=== PATIENT | female | born 1980 | race Caucasian/White ===

== ENCOUNTER 2017-10-09 08:47 | Day surgery (SDC) | payer OTHER, SELFPAY ==
[2017-10-08 15:45] VITALS: BMI 17.6
[2017-10-09] MEDS ORDERED: Midazolam HCl 2 mg/2 ml Vial ONE ×2 (10:14→11:49)
[2017-10-09 10:27] LABS: #Lymphocytes 1.4 thou/uL (1.20-3.40); #Monocytes 0.5 thou/uL (0.11-0.59); #Neutrophils 4.9 thou/uL (1.40-6.50); %Basophils 0.6 % (0.0-1.0); %Eosinophils 0.6 % (0.0-10.0); %Lymphocytes 20.8 % (21.0-51.0); %Monocytes 7.1 % (0.0-10.0); Hemoglobin 14.3 g/dL (12.0-16.0); Mean Corpuscular HGB CONC 34.6 g/dL (32.0-36.0); Mean Corpuscular Volume 92.5 fl (81.0-99.0); Mean Platelet Volume 7.5 fL (7.4-10.4); Platelet Count 241 thou/uL (130-400); RBC Distribution Width 12.1 % (11.5-14.5); Red Blood Cell (RBC) Count 4.45 mill/uL (4.20-5.40); White Blood Cell (WBC) Count 6.9 thou/uL (4.8-10.8)
[2017-10-09] MEDS ORDERED: Doxycycline 100 MG CAP PO SCH ×2 (10:30→12:00)
[2017-10-09] MEDS ORDERED: Fentanyl 100 MCG/2 ML VIAL ONE (11:49)
[2017-10-09] MEDS ORDERED: Misoprostol 200 MCG TAB ONE ×2 (12:53→12:57)
[2017-10-09] MEDS ORDERED: Methylergonovine 0.2 MG/ML VIAL ONE (12:53)
[2017-10-09] MEDS ORDERED: Ketorolac Tromethamine 30 MG/ML VIAL ONE (13:21)
[2017-10-09] MEDS ORDERED: Propofol 200 MG/20 ML VIAL ONE (16:40)
--- NOTE | 2017-10-10 00:39 | OP ---
PREOPERATIVE DIAGNOSIS: 11 week and 4-day missed . POSTOPERATIVE DIAGNOSIS: 11 week and 4-day missed . PROCEDURE: Suction dilation and curettage. SURGEON: Ce Haile D.O. COMPLICATIONS: None. ESTIMATED BLOOD LOSS: 500 mL. IV FLUIDS: 800 mL. URINE OUTPUT: 300 mL during straight catheterization prior to procedure. FINDINGS: Normal appearing vaginal and cervical epithelium, uterus sounded 12 cm prior to procedure and involution noted after procedure. Products of conception. INDICATIONS FOR THE PROCEDURE: Ms. Kevin Anderson is a 37-year-old with a G3, 1, who presented to clinic on 10/08/2017 with 11 week 4-day missed . Patient was counseled on treatment options and elected to have surgical management with suction dilation and curettage. PROCEDURE IN DETAIL: The patient was given antibiotic prophylaxis using oral doxycycline prior to the procedure. She was then brought to the operating room and placed under anesthesia. The patient was placed in dorsal lithotomy position using candy cane stirrups. Straight cath was performed. She was prepped and draped in a sterile fashion. An official timeout was performed. A weighted speculum was placed in the posterior aspect of the vagina. The anterior aspect of vagina was retracted using a Watkins retractor and the anterior aspect of the cervix was grasped using a single tooth tenaculum. The cervix was sequentially dilated using Gorge dilators. A 8 mm suction curettage was then inserted into the cervical canal and suction was activated removing products of conception. Several rounds with the suction dilation and curettage were required to be performed to remove all products of conception. A sharp curettage was performed in a circumferential fashion noting still smooth texture. Therefore, the suction curettage was performed again after which a sharp curettage confirmed gritty texture. During the process of the dilation and curettage, due to increased bleeding, the patient was given Methergine 0.2 mg and rectal Cytotec 800 mcg were given. After the completion of dilation and curettage, bleeding was minimal and there was involution of the uterine cavity. The patient tolerated the procedure well. There were no complications. All counts were correct x2. The patient was transferred to the postoperative recovery room in hemodynamically stable condition. GURDEEP
== END 2017-10-09 15:30 | disposition home or self-care (01) ==
LOC: SDC 08:47
PROVIDERS: ATTEND Obstetrics & Gynecology
PROC: 10D17Z9 Manual Extraction of Products of Conception, Retained, Via Natural or Artificial Opening (ICD-10-PCS; principal; 2017-10-09)
DX: O02.1 Missed abortion (principal); Z79.899 Other long term (current) drug therapy; Z88.6 Allergy status to analgesic agent; Z88.1 Allergy status to other antibiotic agents; Z98.890 Other specified postprocedural states
CPT/HCPCS: 85025; 86850; 86900; 86901; 88305; 93005; 93010; 96374; J1885; J2210; J2250; J2704; J3010

== ENCOUNTER 2020-09-04 14:32 | Outpatient (CLI) | payer OTHER ==
--- NOTE | 2020-09-04 15:10 | MMO ---
Bilateral MAMMO Bilat Diag [facility]DI+NING. CLINICAL HISTORY: Patient is 40 years old and is seen for diagnostic exam. The patient has the following family history of breast cancer: maternal grandmother, Late 50's. The patient has no personal history of cancer. The patient has a history of left needle biopsy in 2016 - benign. VIEWS: The views performed were: bilateral craniocaudal with tomosynthesis; bilateral mediolateral oblique with tomosynthesis; and bilateral mediolateral with tomosynthesis. FILMS COMPARED: The present examination has been compared to prior imaging studies performed at [facility] on 11/30/2009 and 09/04/2020, and at [facility] on 11/27/2015 and 12/06/2015. This study has been interpreted with the assistance of computer-aided detection. MAMMOGRAM FINDINGS: The breasts are extremely dense, which may lower the sensitivity of mammography. Finding 1: There are stable benign appearing calcifications seen in both breasts. A biopsy clip is seen in the right breast. Finding 2: There is an equal density, oval mass measuring 6 millimeters with circumscribed margins seen in the inner region of the right breast. This correponds to the region of palpable concern. The mass was shown to be a cyst on ultrasound. There are no suspicious masses, suspicious calcifications, or new areas of architectural distortion. IMPRESSION: THERE IS NO MAMMOGRAPHIC EVIDENCE OF MALIGNANCY. A ROUTINE FOLLOW-UP MAMMOGRAM IN 1 YEAR IS RECOMMENDED. THE RESULTS OF THIS EXAM WERE SENT TO THE PATIENT. ACR BI-RADS Category 2 - Benign finding MAMMOGRAPHY NOTE: 1. A negative mammogram report should not delay a biopsy if a dominant of clinically suspicious mass is present. 2. Approximately 10% to 15% of breast cancers are not detected by mammography. 3. Adenosis and dense breasts may obscure an underlying neoplasm. Reported by: MONICA JENKINS MD Electonically Signed: [id number]
--- NOTE | 2020-09-04 15:10 | ULT ---
EXAM: US Breast Limited Rt PROVIDED CLINICAL HISTORY: Right breast palpable abnormality COMPARISON: Concurrently performed diagnostic mammogram FINDINGS: Limited sonographic interrogation was performed of the right breast in the region of palpable concern at 4:00. There is a 6 mm simple appearing cyst present in the region of palpable concern. This corresponds to the mammographic abnormality in this region. No concerning sonographic findings are ev ident. IMPRESSION: Simple cyst corresponds to the palpable finding. Return to annual screening. BI-RADS 2 -- benign findings
== END 2020-09-04 14:33 | disposition home or self-care (01) ==
LOC: BICMAMMO 14:32
PROVIDERS: ATTEND Physician Assistant
DX: N60.01 Solitary cyst of right breast (principal); R92.1 Mammographic calcification found on diagnostic imaging of breast; N63.10 Unspecified lump in the right breast, unspecified quadrant
CPT/HCPCS: 77066; G0279

== ENCOUNTER 2022-10-15 13:42 | Outpatient (CLI) | payer OTHER | END 2022-10-15 13:43 | disposition home or self-care (01) | LOC: BICMAMMO 13:42 | PROVIDERS: ATTEND Physician Assistant | DX: Z12.31 Encounter for screening mammogram for malignant neoplasm of breast (principal); R92.1 Mammographic calcification found on diagnostic imaging of breast | CPT/HCPCS: 77063; 77067 ==

== ENCOUNTER 2023-06-28 16:34 | Emergency (ER) | payer SELFPAY ==
[2023-06-28 17:26] LABS: #Monocytes 0.7 thou/uL (0.11-0.59); #Neutrophils 4.4 thou/uL (1.40-6.50); %Basophils 0.6 % (0.0-1.0); %Eosinophils 0.6 % (0.0-10.0); %Lymphocytes 24.6 % (21.0-51.0); %Monocytes 10.3 % (0.0-10.0); %Neutrophils 63.6 % (42.0-75.0); Hematocrit 40.7 % (36.0-47.0); Hemoglobin 13.9 g/dL (12.0-16.0); Mean Corpuscular HGB CONC 34.2 g/dL (32.0-36.0); Mean Corpuscular Hemoglobin 31.3 pg (27.0-31.0); Mean Corpuscular Volume 91.7 fl (78.0-98.0); Mean Platelet Volume 10.7 fL (7.4-10.4); Platelet Count 254 10x3/uL (130-400); RBC Distribution Width 11.7 % (11.5-14.5); Red Blood Cell (RBC) Count 4.44 mill/uL (4.20-5.40); White Blood Cell (WBC) Count 6.9 10x3/uL (4.8-10.8)
[2023-06-28 17:54] LABS: Troponin I Less than 0.010 ng/mL (< 0.028)
[2023-06-28 18:05] LABS: ALT (SGPT) 20 U/L (8-55); AST (SGOT) 24 U/L (5-34); Albumin 5.1 g/dL (3.5-5.0); Alkaline Phosphatase 51 U/L (40-110); Anion Gap 12 mmol/L (10-20); BUN (Urea Nitrogen) 10 mg/dL (7.0-18.7); Bilirubin, Total 0.4 mg/dL (0.2-1.2); Calc. Creatinine Clearance 0 mL/min (70-130); Calcium 9.7 mg/dL (7.8-10.44); Carbon Dioxide 28 mmol/L (22-29); Chloride 103 mmol/L (98-107); Estimated GFR 91; Globulin 2.1 g/dL (2.4-3.5); Glucose 84 mg/dL (70-105); Lipase 25 U/L (8-78); Protein, Total 7.2 g/dL (6.0-8.3); Sodium 139 mmol/L (136-145)
[2023-06-28] MEDS ORDERED: Acetaminophen 500 MG TAB ONE (20:00)
[2023-06-28] MEDS ORDERED: Metoclopramide HCl 10 MG/2 ML VIAL ONE (20:01)
[2023-06-28] MEDS ORDERED: Ketorolac Tromethamine 30 MG/ML VIAL ONE ×2 (20:01→20:30)
== END 2023-06-28 21:11 | disposition home or self-care (01) ==
LOC: ERS 16:34
DX: E86.0 Dehydration (principal); R51.9 Headache, unspecified; R42 Dizziness and giddiness
CPT/HCPCS: 36415; 71045; 80053; 83690; 84484; 85025; 93005; 94760; 96374; 96375; J1885; J2765